=== PATIENT | female | born 1945 | race Caucasian/White ===

== ENCOUNTER 2017-12-18 23:12 | Emergency (ER) | payer MEDICARE ==
[~2017-12-18] VITALS: Ht 157.5 cm; Wt 104.3 kg
[2017-12-19] MEDS ORDERED: ATOR20 PO (00:04)
[2017-12-19] MEDS ORDERED: ASPI81CH PO (00:04)
[2017-12-19] MEDS ORDERED: GLIM2 PO (00:06)
[2017-12-19] MEDS ORDERED: Neurontin800 MG PO (00:06)
[2017-12-19] MEDS ORDERED: METF500 PO (00:07)
== END 2017-12-19 01:31 | disposition home or self-care (01) ==
LOC: ER 23:12
DX: M25.511 Pain in right shoulder (principal); M25.561 Pain in right knee; M54.2 Cervicalgia; Z88.5 Allergy status to narcotic agent; Z88.8 Allergy status to other drugs, medicaments and biological substances; E11.9 Type 2 diabetes mellitus without complications; J44.9 Chronic obstructive pulmonary disease, unspecified; I10 Essential (primary) hypertension; W18.2XXA Fall in (into) shower or empty bathtub, initial encounter; Z79.82 Long term (current) use of aspirin; Z79.899 Other long term (current) drug therapy; Z79.84 Long term (current) use of oral hypoglycemic drugs
CPT/HCPCS: 72125; 99284